=== PATIENT | male | born 1950 | race African-American/Black ===

== ENCOUNTER 2016-04-28 10:49 | Day surgery (SDC) | payer BC ==
[2016-04-27 11:18] VITALS: BMI 32.6
[2016-04-28] MEDS ORDERED: MIDAZOLAM HCL 2 MG/2 ML SINGLE DOSE VIAL ONE (12:27)
[2016-04-28] MEDS ORDERED: PROPOFOL 20 ML ONE (12:27)
[2016-04-28] MEDS ORDERED: ceFAZolin SODIUM 1 GM VIAL IVPB ONE (12:42)
[2016-04-28] MEDS ORDERED: ceFAZolin SODIUM 1 GM VIAL ONE (12:44)
--- NOTE | 2016-04-28 13:19 | OP ---
Operative Note - Note: Pre-Operative Diagnosis: BPH Operation: Greenlight laser of Prostate Findings: BPH obstucting tissue Post-Operative Diagnosis: Same as Pre-op Surgeon: David Neal MD. Anesthesia: MAC Estimated Blood Loss (mls): 20 Drains & Tubes with Location: 20 Fr perkins Blood Volume Replaced (mls): 600
[2016-04-28] MEDS ORDERED: oxyCODONE HCL 5 MG TABLET PO PRN (13:20)
[2016-04-28] MEDS ORDERED: ONDANSETRON 4 MG/2 ML VIAL IVPUSH PRN (13:30)
[2016-04-28] MEDS ORDERED: IBUPROFEN 800 MG/8 ML IJ IVPB PRN (13:30)
[2016-04-28] MEDS ORDERED: LACTATED RINGERS SOLUTION 1,000 ML IV SCH (13:30)
[2016-04-28] MEDS ORDERED: IBUPROFEN 800 MG/8 ML IJ IVPB ONE (13:53)
[2016-04-28] MEDS ORDERED: hydrALAZINE HCL 20 MG/ML VIAL ONE (14:04)
[2016-04-28] MEDS ORDERED: hydrALAZINE HCL 20 MG/ML VIAL IM ONE (14:10)
[2016-04-28 16:19] VITALS: TEMP 97.9
[2016-04-28 16:23] VITALS: BP 159/71; PULSE 68
--- NOTE | 2016-05-28 12:27 | OP ---
DATE OF OPERATION: 04/28/2016 HISTORY: A 65-year-old gentleman with history of obstructive uropathy on previous evaluation was found to have obstructive urodynamic profile and elevated post-void residual. After discussing treatment options, the patient elected to undergo the above-stated procedure. Risks and benefits of treatment, alternative treatments discussed in detail, all questions were answered. PREOPERATIVE DIAGNOSIS: Benign prostatic hypertrophy, elevated residual urine. POSTOPERATIVE DIAGNOSIS: Benign prostatic hypertrophy, elevated residual urine. PROCEDURE: GreenLight laser of prostate. BRIEF OPERATIVE NOTE: Patient brought to the operating room, placed in supine position. Once general anesthesia was administered, the patient was transferred to the dorsal lithotomy position, prepped and draped in standard sterile fashion. Intravenous antibiotics were given. At this time, a 26-Ukrainian cystoscope was placed into the bladder under direct vision. The prostate was approximately 5 cm and occlusive. The orifice was in normal anatomic position. The bladder was 2+ trabeculated. Using the GreenLight laser from 10 to 6 and then 2 to 6 o'clock positions from the bladder neck to 1 cm proximal to the verumontanum, the prostate was vaporized uneventfully. Estimated blood loss approximately 25 mL. A small amount of apical tissue was then resected. The orifices were intact at the termination of the procedure. Bladder was drained. There was no evidence of active bleeding with the irrigation turned off. A 20-Ukrainian Mortensen catheter was placed to straight drainage and the patient was brought to recovery room in stable and satisfactory condition. KYE CRUZ M.D. CRISTINA/[id number]
== END 2016-04-28 16:23 | disposition home or self-care (01) ==
LOC: JASU-SURG 10:49
PROVIDERS: ATTEND Urology
PROC: 0VT08ZZ Resection of Prostate, Via Natural or Artificial Opening Endoscopic (ICD-10-PCS; principal; 2016-04-28 12:00)
DX: N40.0 Benign prostatic hyperplasia without lower urinary tract symptoms (principal)
CPT/HCPCS: 94760

== ENCOUNTER 2024-09-21 16:59 | Observation (INO) | payer BC, OTHER ==
[2024-09-21 18:10] LABS: ABSOLUTE IMMATURE GRANULOCYTES 0.01 x10^3/uL (0.0-0.031); BASOPHILS # 0.03 x10^3/uL (0.01-0.08); EOSINOPHIL % 5.1 % (0.8-7.0); EOSINOPHILS # 0.32 x10^3/uL (0.04-0.54); MCHC 32.2 g/dl (32.3-36.5); MEAN CELL VOLUME 89.5 fl (79.0-92.2); MEAN PLT VOLUME 9.5 fl (9.4-12.4); MONOCYTE # 0.60 x10^3/uL (0.30-0.82); MONOCYTE % 9.5 % (5.3-12.2); RDW 15.7 % (12.2-16.6)
[2024-09-21 18:18] LABS: INR 1.01 (0.83-1.09); PROTHROMBIN TIME (PATIENT) 11.1 SEC (9.7-13.0)
[2024-09-21 18:21] LABS: ACTIVATED PTT 31.8 SECONDS (25.2-36.5)
[2024-09-21 18:38] LABS: CO2 27.0 mmol/L (21-32); CREATININE 1.3 mg/dL (0.55-1.3); GLUCOSE,RANDOM 114.0 mg/dL (74-106); SGPT/ALT 34.0 U/L (13-61)
[2024-09-21 18:41] LABS: SGOT/AST 34.0 U/L (15-37); TOT PROT 6.8 g/dl (6.4-8.2)
[2024-09-21 18:42] LABS: ALK PHOS 63.0 U/L (45-117)
[2024-09-21 19:29] LABS: HCV DIAGNOSTIC IN-HOUSE W/RFLX NON-REACTIVE (NONREACTIVE); HIV INTERPRETATION NEGATIVE (NEGATIVE)
[2024-09-22 03:07] VITALS: BMI 34.0
[2024-09-22] MEDS: ACETAMINOPHEN 325 MG TABLET (FP) PO PRN (05:56)
[2024-09-22 09:18] VITALS: PULSE 50; TEMP 97.7
[2024-09-22 13:59] VITALS: BP 129/57; RESP 18
[2024-09-22] MEDS ORDERED: ATORVASTATIN CA 80 MG TABLET (FP) PO SCH (22:00)
[2024-09-23] MEDS ORDERED: amLODIPine BESYLATE 10 MG TABLET (FP) PO SCH (10:00)
[2024-09-23] MEDS ORDERED: EZETIMIBE 10 MG TABLET (FP) PO SCH (10:00)
== END 2024-09-22 17:45 | disposition home or self-care (01) ==
LOC: JER 16:59 → JERBED 21:41 → J7W 09-22 02:02
PROVIDERS: ADMIT Internal Medicine; ATTEND Internal Medicine
DX: K40.30 Unilateral inguinal hernia, with obstruction, without gangrene, not specified as recurrent (principal); I10 Essential (primary) hypertension; I25.10 Atherosclerotic heart disease of native coronary artery without angina pectoris; E78.5 Hyperlipidemia, unspecified; E11.9 Type 2 diabetes mellitus without complications
CPT/HCPCS: 36415; 74177-TC; 80053; 83605; 85025; 85610; 85730; 86803; 86850; 86900; 86901; 87389; 93005; 93010; 99285-25; G0378; Q9967